=== PATIENT | male | born 1960 | race Caucasian/White ===

== ENCOUNTER → 2016-09-07 | Outpatient (CLI) | payer BC | END | disposition home or self-care (01) | LOC: CPPFTMAIN 11:52 | PROVIDERS: ATTEND Internal Medicine | DX: J45.909 Unspecified asthma, uncomplicated (principal); J98.8 Other specified respiratory disorders | CPT/HCPCS: 94060; 94726; 94729 ==

== ENCOUNTER 2022-08-31 09:00 | Inpatient (IN) | payer BC ==
[2022-08-31] MEDS ORDERED: SODIUM CHLORIDE 0.9% 1,000 ML IV STA (09:17)
--- NOTE | 2022-08-31 09:24 | ED ---
General Adult HPI - General Chief complaint: Neuro Symptoms/Deficit Stated complaint: Slurred speech Time Seen by Provider: 08/31/22 09:11 Source: patient, RN notes reviewed Mode of arrival: ambulatory Limitations: no limitations - History of Present Illness Initial comments: Patient is a pleasant 62-year-old male presenting to the emergency Department with several complaints. Onset of symptoms was just after 8 AM. Patient was arty awake. Patient feels odd sensation left side of the face and arm. No new weakness noted. Patient also had some slurred speech while on a conference call with work. Patient still feels cloudy and that his speech is not quite normal. Patient states there is also time he had some mild chest discomfort described as tightness that has resolved. No back pain. - Related Data Home Medications Medication Instructions Recorded Confirmed Albuterol Sulfate [Albuterol 1 - 2 puff INHALATION RT-Q4H PRN 08/31/22 08/31/22 Sulfate Hfa] Vitamin B Complex 1 cap PO DAILY 08/31/22 08/31/22 Vitamin C(Unknown Dose) 1 tab PO DAILY 08/31/22 08/31/22 Vitamin D(Unknown Dose) 1 tab PO DAILY 08/31/22 08/31/22 Vitamin K-2(Unknown Dose) 1 tab PO DAILY 08/31/22 08/31/22 Allergies Allergy/AdvReac Type Severity Reaction Status Date / Time No Known Allergies Allergy Verified 08/31/22 09:57 Review of Systems ROS Statement: Those systems with pertinent positive or pertinent negative responses have been documented in the HPI. ROS Other: All systems not noted in ROS Statement are negative. Constitutional: Denies: fever Eyes: Denies: eye pain ENT: Denies: ear pain Respiratory: Denies: cough, dyspnea Cardiovascular: Reports: as per HPI Endocrine: Denies: fatigue Gastrointestinal: Denies: abdominal pain Genitourinary: Denies: urgency Musculoskeletal: Denies: back pain Skin: Denies: rash Neurological: Reports: as per HPI, paresthesias. Denies: headache, weakness Past Medical History Past Medical History: Asthma History of Any Multi-Drug Resistant Organisms: None Reported Past Surgical History: Hernia Repair, Orthopedic Surgery Past Psychological History: No Psychological Hx Reported Smoking Status: Never smoker Past Alcohol Use History: None Reported Past Drug Use History: None Reported General Exam Limitations: no limitations General appearance: alert, in no apparent distress Head exam: Present: normocephalic Eye exam: Present: normal appearance, PERRL, EOMI. Absent: nystagmus ENT exam: Present: normal oropharynx Neck exam: Present: normal inspection Respiratory exam: Present: normal lung sounds bilaterally. Absent: chest wall tenderness Cardiovascular Exam: Present: regular rate, normal rhythm Expanded Peripheral pulses: 2+: Radial (R), Radial (L), Posterior Tibialis (R), Posterior Tibialis (L) GI/Abdominal exam: Present: soft. Absent: tenderness Extremities exam: Present: normal inspection. Absent: pedal edema, calf tenderness Neurological exam: Present: alert, oriented X3, CN II-XII intact. Absent: motor sensory deficit Expanded Neurological exam: Present: protecting the airway Patient oriented to: Present: person, place, time Speech: Present: fluid speech. Absent: expressive aphasia Cranial nerves: EOM's Intact: Normal, Facial Sensation: Normal Sensory exam: Upper Extremity Light Touch: Normal, Lower Extremity Light Touch: Normal Motor strength exam: RUE: 5, LUE: 5, RLE: 5, LLE: 5 Eye Response: (4) open spontaneously Motor Response: (6) obeys commands Verbal Response: (5) oriented Psychiatric exam: Present: normal affect, normal mood Skin exam: Present: normal color Course Vital Signs 08/31/22 09:05 Temperature 98 F Pulse Rate 66 Respiratory 18 Rate Blood Pressure 213/103 O2 Sat by Pulse 98 Oximetry - Reevaluation(s) Reevaluation #1: 08/31/22 09:21 Patient has NIH of 0 and therefore is not considered a TPA candidate. Risks are felt to outweigh benefits EKG Findings - EKG Results: EKG: interpreted by ERMD, sinus rhythm, normal axis, normal QRS, normal ST/T EKG shows: bradycardia Medical Decision Making - Medical Decision Making Was pt. sent in by a medical professional or institution (, PA, FIRE [employer], urgent care, hospital, or custodial...) When possible be specific @ -No Did you speak to anyone other than the patient for history (EMS, parent, family, police, friend...)? What history was obtained from this source @ -No Did you review nursing and triage notes (agree or disagree)? Why? @ -I reviewed and agree with nursing and triage notes Were old charts reviewed (outside hosp., previous admission, EMS record, old EKG, old radiological studies, urgent care reports/EKG's, custodial records)? Report findings @ -No old charts were reviewed Differential Diagnosis (chest pain, altered mental status, abdominal pain women, abdominal pain men, vaginal bleeding, weakness, fever, dyspnea, syncope, headache, dizziness, GI bleed, back pain, seizure, CVA, palpatations, mental health)? @ -Differential Weakness: Hypoglycemia, shock, sepsis, hyponatremia, anemia, infection, MT, ETOH, adverse medicine reaction, overdose, stroke, this is not meant to be an all-inclusive list. EKG interpreted by me (3pts min.). @ -As above X-rays interpreted by me (1pt min.). @ -Chest x-ray shows no acute process CT interpreted by me (1pt min.). @ -Report reviewed U/S interpreted by me (1pt. min.). @ -None done What testing was considered but not performed or refused? (CT, X-rays, U/S, labs)? Why? @ -None What meds were considered but not given or refused? Why? @ -None Did you discuss the management of the patient with other professionals (professionals i.e. , PA, [employer], lab, RT, psych nurse, social sciences instructor, heavy equipment technician, teacher, philanthropy officer, case management specialist)? Give summary @ -Case was discussed with Dr. Kevin, who will admit for Dr. Freeman Was smoking cessation discussed for >3mins.? @ -No Was critical care preformed (if so, how long)? @ -No Were there social determinants of health that impacted care today? How? (Homelessness, low income, unemployed, alcoholism, drug addiction, transportation, low edu. Level, literacy, decrease access to med. care, [facility], rehab)? @ -No Was there de-escalation of care discussed even if they declined (Discuss DNR or withdrawal of care, Hospice)? DNR status @ -No What co-morbidities impacted this encounter? (DM, HTN, Smoking, COPD, CAD, Cance r, CVA, ARF, Chemo, Hep., AIDS, mental health diagnosis, sleep apnea, morbid obesity)? @ -None Was patient admitted / discharged? Hospital course, mention meds given and route, prescriptions, significant lab abnormalities, going to OR and other pertinent info. @ -Patient reevaluated and states he is near symptom-free at this time. Speech remains normal. Nursing staff did have some concerns with patient having mild speech difficulties. Patient had earlier he did have difficulty finding words. Undiagnosed new problem with uncertain prognosis? @ -No Drug Therapy requiring intensive monitoring for toxicity (Heparin, Nitro, Insulin, Cardizem)? @ -No Were any procedures done? @ -No Diagnosis/symptom? @ -TIA Acute, or Chronic, or Acute on Chronic? @ -Acute Uncomplicated (without systemic symptoms) or Complicated (systemic symptoms)? @ -default Side effects of treatment? @ -No Exacerbation, Progression, or Severe Exacerbation? @ -No Poses a threat to life or bodily function? How? (Chest pain, USA, MT, pneumonia, PE, COPD, DKA, ARF, appy, cholecystitis, CVA, Diverticulitis, Homicidal, Suicidal, threat to staff... and all critical care pts) @ -No - Lab Data Result diagrams: 08/31/22 09:22 08/31/22 09:22 Lab Results 08/31/22 08/31/22 08/31/22 Range/Units 09:22 09:22 09:22 WBC 6.9 (3.8-10.6) k/uL RBC 4.99 (4.30-5.90) m/uL Hgb 14.8 (13.0-17.5) gm/dL Hct 43.1 (39.0-53.0) % MCV 86.3 (80.0-100.0) fL MCH 29.7 (25.0-35.0) pg MCHC 34.4 (31.0-37.0) g/dL RDW 13.9 (11.5-15.5) % Plt Count 211 (150-450) k/uL MPV 8.4 Neutrophils % 63 % Lymphocytes % 20 % Monocytes % 7 % Eosinophils % 4 % Basophils % 1 % Neutrophils # 4.4 (1.3-7.7) k/uL Lymphocytes # 1.4 (1.0-4.8) k/uL Monocytes # 0.5 (0-1.0) k/uL Eosinophils # 0.3 (0-0.7) k/uL Basophils # 0.1 (0-0.2) k/uL PT 9.5 (9.0-12.0) sec INR 0.9 (<1.2) APTT 22.0 (22.0-30.0) sec Sodium 138 (137-145) mmol/L Potassium 4.5 (3.5-5.1) mmol/L Chloride 107 (98-107) mmol/L Carbon Dioxide 25 (22-30) mmol/L Anion Gap 6 mmol/L BUN 14 (9-20) mg/dL Creatinine 0.93 (0.66-1.25) mg/dL Est GFR (CKD-EPI)AfAm >90 (>60 ml/min/1.73 sqM) Est GFR (CKD-EPI)NonAf 88 (>60 ml/min/1.73 sqM) Glucose 116 H (74-99) mg/dL Calcium 8.9 (8.4-10.2) mg/dL Total Bilirubin 0.8 (0.2-1.3) mg/dL AST 26 (17-59) U/L ALT 35 (4-49) U/L Alkaline Phosphatase 69 (38-126) U/L Creatine Kinase (55-170) U/L Troponin I (0.000-0.034) ng/mL Total Protein 6.6 (6.3-8.2) g/dL Albumin 4.1 (3.5-5.0) g/dL 08/31/22 08/31/22 Range/Units 09:22 09:22 WBC (3.8-10.6) k/uL RBC (4.30-5.90) m/uL Hgb (13.0-17.5) gm/dL Hct (39.0-53.0) % MCV (80.0-100.0) fL MCH (25.0-35.0) pg MCHC (31.0-37.0) g/dL RDW (11.5-15.5) % Plt Count (150-450) k/uL MPV Neutrophils % % Lymphocytes % % Monocytes % % Eosinophils % % Basophils % % Neutrophils # (1.3-7.7) k/uL Lymphocytes # (1.0-4.8) k/uL Monocytes # (0-1.0) k/uL Eosinophils # (0-0.7) k/uL Basophils # (0-0.2) k/uL PT (9.0-12.0) sec INR (<1.2) APTT (22.0-30.0) sec Sodium (137-145) mmol/L Potassium (3.5-5.1) mmol/L Chloride (98-107) mmol/L Carbon Dioxide (22-30) mmol/L Anion Gap mmol/L BUN (9-20) mg/dL Creatinine (0.66-1.25) mg/dL Est GFR (CKD-EPI)AfAm (>60 ml/min/1.73 sqM) Est GFR (CKD-EPI)NonAf (>60 ml/min/1.73 sqM) Glucose (74-99) mg/dL Calcium (8.4-10.2) mg/dL Total Bilirubin (0.2-1.3) mg/dL AST (17-59) U/L ALT (4-49) U/L Alkaline Phosphatase (38-126) U/L Creatine Kinase 52 L (55-170) U/L Troponin I <0.012 (0.000-0.034) ng/mL Total Protein (6.3-8.2) g/dL Albumin (3.5-5.0) g/dL Disposition Clinical Impression: Transient cerebral ischemia Disposition: ADMITTED IP TO THIS HOSP Is patient prescribed a controlled substance at d/c from ED?: No Referrals: Jae García MD [STAFF PHYSICIAN] - 1-2 days Time of Disposition: 10:36
[2022-08-31 09:41] LABS: Basophils # (A) 0.1 k/uL (0-0.2); Basophils % (A) 1 %; Eosinophils # (A) 0.3 k/uL (0-0.7); Eosinophils % (A) 4 %; HCT 43.1 % (39.0-53.0); HGB 14.8 gm/dL (13.0-17.5); Lymphocytes # (A) 1.4 k/uL (1.0-4.8); Lymphocytes % (A) 20 %; MCH 29.7 pg (25.0-35.0); MCHC 34.4 g/dL (31.0-37.0); MCV 86.3 fL (80.0-100.0); Mean Platelet Volume 8.4; Monocytes # (A) 0.5 k/uL (0-1.0); Monocytes % (A) 7 %; Neutrophils # (A) 4.4 k/uL (1.3-7.7); Neutrophils % (A) 63 %; Platelet Count 211 k/uL (150-450); RBC 4.99 m/uL (4.30-5.90); RDW 13.9 % (11.5-15.5); WBC 6.9 k/uL (3.8-10.6)
[2022-08-31 09:56] LABS: INR 0.9 (<1.2); Prothrombin Time 9.5 sec (9.0-12.0)
--- NOTE | 2022-08-31 10:02 | XR ---
EXAMINATION TYPE: XR chest 2V DATE OF EXAM: 08/31/2022 COMPARISON: NONE TECHNIQUE: PA and lateral views submitted. HISTORY: Altered mental status FINDINGS: The lungs are clear and there is no pneumothorax, pleural effusion, or focal pneumonia. Heart size normal and no overt failure. Osseous structures demonstrate hypertrophic and degenerative changes of the spine. Hyperinflation suggests COPD. IMPRESSION: 1. No acute process.
--- NOTE | 2022-08-31 10:04 | CT ---
EXAMINATION TYPE: CT brain wo con for TPA DATE OF EXAM: 08/31/2022 COMPARISON: None INDICATION: Left side face and arm numbness. DLP: 1157.4 mGycm, Automated exposure control for dose reduction was used. CONTRAST: None CT of the brain is performed utilizing 3 mm thick sections through the posterior fossa and 3 mm thick sections through the remaining calvarium. Study is performed within 24 hours of arrival to the hosp ital. No abnormal hyperdensity is present to suggest an acute intracranial hemorrhage. No mass lesion is evident. No acute infarcts are evident. Ventricles and sulci are appropriate for the patient age. There is mucosal thickening to the right maxillary sinus. Small air-fluid level may be present. Corre late for acute right maxillary sinusitis. Mucosal thickening is through ethmoid air cell regions. The ethmoidectomy and uncinectomy. Left septal deviation is present. Air-fluid level is within the front al sinus. Mastoid air cells are clear. IMPRESSIONS: 1. No acute intracranial process. Follow-up MRI can be performed as clinically indicated. 2. Prior sinus surgery. Mucosal thickening is within right maxillary sinus and ethmoid air cells. Air -fluid levels are within the frontal and right maxillary sinus. Correlate for sinusitis.
[2022-08-31 10:07] LABS: ALT 35 U/L (4-49); AST 26 U/L (17-59); African American GFR (CKD) >90 (>60 ml/min/1.73 sqM); Albumin 4.1 g/dL (3.5-5.0); Alkaline Phosphatase 69 U/L (38-126); Anion Gap 6 mmol/L; Blood Urea Nitrogen 14 mg/dL (9-20); Calcium 8.9 mg/dL (8.4-10.2); Carbon Dioxide 25 mmol/L (22-30); Chloride 107 mmol/L (98-107); Glucose 116 mg/dL (74-99); Non-African American GFR(CKD) 88 (>60 ml/min/1.73 sqM); Potassium 4.5 mmol/L (3.5-5.1); Sodium 138 mmol/L (137-145); Total Bilirubin 0.8 mg/dL (0.2-1.3); Total Protein 6.6 g/dL (6.3-8.2)
[2022-08-31] MEDS ORDERED: ASPIRIN 325 MG TAB PO STA (10:36)
[2022-08-31] MEDS ORDERED: ALBUTEROL NEBULIZED 2.5 MG/3 ML INHALATION PRN (11:29)
[2022-08-31] MEDS: SODIUM CHLORIDE 0.9% 1,000 ML IV SCH ×2 (11:32→20:26)
--- NOTE | 2022-08-31 12:11 | P.HPIM ---
History of Present Illness H&P Date: 08/31/22 History of Presenting Illness: Patient is a 62-year-old male with a past medical history of hypertension and asthma. He presented to the emergency department with a chief complaint of left-sided facial tingling and numbness along with tingling to left upper extremity. Patient reports his day began normally and around 8:30 AM while undergoing a work meeting he began noticing a tingling/heaviness/numbness to the left side of his face accompanied by left upper extremity tingling. Patient reports shortly after this was accompanied by a brain fog and difficulties with his speech stating words would not come out and when he did did not make sense. Patient reports difficulties with speech only lasted moments but the tingling and "flat" feeling to the left side of his face remains as well as the tingling in his left upper extremity. Patient states he has a very stressful job and has been under increased stress recently and was also recently diagnosed with a sinus infection on 08/23/22 where he was started on Augmentin but only completed a 5 day course. In addition patient was also started on amlodipine 5 mg daily at this time secondary to hypertension. Patient reports he has not been under the care of a primary care doctor since before [facility]. Patient denies having any headache, changes in vision or hearing, fevers or chills, dizziness/l ightheadedness, dysphagia, sore throat, cough or congestion, chest pain or palpitations, shortness of breath, nausea, vomiting, or experiencing any numbness/swelling/focal weakness in his extremities. Patient does report history of sinus surgery and uses daily nasal flushes but reports recently he is having decreased drainage from his right nares along with increase/build up sinus pressure. Patient underwent full evaluation in the emergency department. Upon arrival patient was found to be in hypertensive urgency with blood pressure of 213/103 and heart rate of 66. Patient denies taking amlodipine as previously prescribed. EKG completed showing sinus bradycardia at 59 bpm with no noted T wave or ST abnormality showing no signs of acute ischemia upon personal review and interpretation. CT brain completed in radiology report reviewed showing evidence of prior sinus surgery with mucosal thickening in right maxillary sinus and eats moist air cells with fluid levels consistent with frontal and right maxillary sinusitis, CT otherwise negative for acute intracranial process. Chest x-ray was negative for acute cardiopulmonary process revealing mild hyperinflation consistent with COPD. Labs completed and reviewed. CBC, coags, and CMP were unremarkable. Troponin normal findings at less than 0.012. Patient along with laboratory and imaging findings were discussed in detail with the ED physician. Patient is being admitted to observation unit with telemetry under our services with consultation to neurology. Review of systems: Pertinent positives and negatives as discussed in HPI, a complete review of systems was performed and all other systems are negative. Physical exam: Vital signs reviewed and stable. General: Nontoxic, no distress and appears stated age. Derm: Skin warm and dry, normal coloration for ethnicity. Head: Atraumatic, normocephalic and symmetric. Eyes: EOMs intact, no lid lag, and anicteric sclera Mouth: no lip lesions, mucus membranes moist Cardiovascular: regular rate and rhythm with normal S1S2, no murmur, positive posterior tibial pulses bilaterally, and cap refill < 2 seconds. Lungs: Respirations even, regular, and unlabored on room air. Lungs CTA bi laterally, no rhonchi, no rales, no wheezing, and no accessory muscle usage. Abdominal: soft, nontender to palpation, no guarding, no appreciable organomegaly Ext: ROM intact. No gross muscle atrophy, no edema, no contractures Neuro: Speech clear, face symmetrical and CN II-XII grossly intact with no noted focal neuro deficits Psych: Alert and oriented to person, place, time, and situation. Appropriate and pleasant affect. Assessment and Plan of Care: Left sided facial numbness and tingling Left upper extremity paresthesias Brief Episode of aphasia Rule out TIA Hypertensive urgency -Upon arrival patient was found to be in hypertensive urgency with blood pressure of 213/103 and heart rate of 66. -Patient denies taking amlodipine as previously prescribed. EKG completed showing sinus bradycardia at 59 bpm with no noted T wave or ST abnormality showing no signs of acute ischemia upon personal review and interpretation. -CT brain completed in radiology report reviewed showing evidence of prior sinus surgery with mucosal thickening in right maxillary sinus and eats moist air cells with fluid levels consistent with frontal and right maxillary sinusitis, CT otherwise negative for acute intracranial process. -Chest x-ray was negative for acute cardiopulmonary process revealing mild hyperinflation consistent with COPD. -Labs completed and reviewed. CBC, coags, and CMP were unremarkable. Troponin normal findings at less than 0.012. -Patient along with laboratory and imaging findings were discussed in detail with the ED physician. Patient is being admitted to observation unit with telem etry under our services with consultation to neurology. -Neuro checks every 4 hours -Telemetry monitoring -Order placed for lipid profile and hemoglobin A1c -Order placed for echocardiogram and carotid Dopplers -Order placed for daily aspirin and 25 mg daily and atorvastatin 40 mg nightly -Order placed for vital signs every 4 hours and patient started on amlodipine 5 mg daily. Right frontal and maxillary sinusitis, with history of sinus surgery and deviated septum -CT brain completed in radiology report reviewed showing evidence of prior sinus surgery with mucosal thickening in right maxillary sinus and eats moist air cells with fluid levels consistent with frontal and right maxillary sinusitis. -Patient recently diagnosed with sinusitis, however did not take/complete antibiotic course as directed. -Augmentin 875/125 mg tablets by mouth every 12 hours 10 days. The patient is admitted with an anticipated less than 2 midnight stay for evaluation of left-sided facial numbness and tingling. CODE STATUS: Full code DVT prophylaxis: Lovenox Discussed with: Patient, ED physician, and RN Anticipated discharge date: Clinical course to determine, likely 24-[address]: Home Patient was seen independently by Nurse Practitioner. This document was prepared using [employer] dictation software. Please allow for errors in brake repair supervisor while rare they do occur. Past Medical History Past Medical History: Asthma History of Any Multi-Drug Resistant Organisms: None Reported Past Surgical History: Hernia Repair, Orthopedic Surgery Past Psychological History: No Psychological Hx Reported Smoking Status: Never smoker Past Alcohol Use History: None Reported Past Drug Use History: None Reported Medications and Allergies Home Medications Medication Instructions Recorded Confirmed Type Albuterol Sulfate [Albuterol 1 - 2 puff INHALATION RT-Q4H PRN 08/31/22 08/31/22 History Sulfate Hfa] Vitamin B Complex 1 cap PO DAILY 08/31/22 08/31/22 History Vitamin C(Unknown Dose) 1 tab PO DAILY 08/31/22 08/31/22 History Vitamin D(Unknown Dose) 1 tab PO DAILY 08/31/22 08/31/22 History Vitamin K-2(Unknown Dose) 1 tab PO DAILY 08/31/22 08/31/22 History Allergies Allergy/AdvReac Type Severity Reaction Status Date / Time No Known Allergies Allergy Verified 08/31/22 09:57 Physical Exam Vitals: Vital Signs Temp Pulse Resp BP Pulse Ox 03/21/23 11:00 52 L 16 161/99 96 08/31/22 10:30 60 18 171/100 96 08/31/22 09:05 98 F 66 18 213/103 98 Intake and Output 08/30/22 08/31/22 08/31/22 22:59 06:59 14:59 Other: Weight 108.862 kg Results CBC & Chem 7: 08/31/22 09:22 08/31/22 09:22 Labs: Abnormal Lab Results - Last 24 Hours (Table) 08/31/22 08/31/22 Range/Units 09:22 09:22 Glucose 116 H (74-99) mg/dL Creatine Kinase 52 L (55-170) U/L
[2022-08-31] MEDS: AMOXIC-POT CLAV 875-125MG 1 EACH TAB PO SCH ×2 (12:16→20:25)
[2022-08-31] MEDS: amLODIPine 5 MG TAB PO SCH (12:18)
--- NOTE | 2022-08-31 12:43 | US ---
EXAMINATION TYPE: US carotid duplex BILAT DATE OF EXAM: 08/31/2022 COMPARISON: NONE CLINICAL HISTORY: Stenosis. Pt states left facial numbness TECHNIQUE: Carotid duplex ultrasound examination. Indirect Doppler criteria was utilized. FINDINGS: EXAM MEASUREMENTS: RIGHT: Peak Systolic Velocity (PSV) cm/sec ----- Right CCA: 52.6 ----- Right ICA: 135.5 ----- Right ECA: 70.2 ICA/CCA ratio: 2.6 RIGHT: End Diastole cm/sec ----- Right CCA: 9.8 ----- Right ICA: 22.5 ----- Right ECA: 7.6 LEFT: Peak Systolic Velocity (PSV) cm/sec ----- Left CCA: 71.4 ----- Left ICA: 117.7 ----- Left ECA: 76.9 ICA/CCA ratio: 1.6 LEFT: End Diastole cm/sec ----- Left CCA: 21.9 ----- Left ICA: 43.4 ----- Left ECA: 7.6 VERTEBRALS (direction of flow): Right Vertebral: Antegrade Left Vertebral: Antegrade Rhythm: Normal BLACK LEATHER BUFFER NOTES: Mildly elevated velocities within right ICA, otherwise no significant stenosis vis ualized. Significant plaquing is not identified. Some intimal thickening is present on the left. IMPRESSION: 1. Moderate elevated velocity within the right internal carotid artery. This would correlate with a m oderate stenosis based on velocities. Significant plaquing or is not identified. Criteria for Assigning % of Stenosis / Diameter reduction (Estimation based on the indirect measurements of the internal carotid artery velocities (ICA PSV). 1. Normal (no stenosis)=ICA PSV < 125 cm/s: ratio < 2.0: ICA EDV<40 cm/s. 2. Less than 50% stenosis=ICA PSV < 125 cm/s: ratio < 2.0: ICA EDV<40 cm/s. 3. 50 to 69% stenosis=ICA PSV of 125 to 230 cm/s: ration 2.0 ? 4.0: ICA EDV 40-100 cm/s. 4. Greater than 70% stenosis to near occlusion= ICA PSV > 230 cm/s: ratio > 4.0: ICA EDV > 100 cm/s. 5. Near occlusion= ICA PSV velocities may be low or undetectable: variable ratio and ICA EDV. 6. Total occlusion=unable to detect flow.
[2022-08-31] MEDS: ENOXAPARIN 40 MG/0.4 ML SYRINGE SQ SCH (15:32)
--- NOTE | 2022-08-31 17:46 | CT ---
EXAMINATION TYPE: CT angio head neck CT DLP: 929 mGycm, Automated exposure control for dose reduction was used. DATE OF EXAM: 08/31/2022 5:33 PM COMPARISON: CT brain 08/31/2022 CLINICAL INDICATION:Male, 62 years old with history of CVA, stenosis, r/o dissection, left side facia l and arm weakness TECHNIQUE: Axially acquired helical CT angiogram of the head and neck was obtained with contrast. Axi al images are supplemented with 3D reconstructions which were [facility] NASCET criteria used. Contrast used:65 mL of Isovue 370 with IV Contrast, Oral contrast used: None. FINDINGS: CTA HEAD: No evidence of acute intracranial hemorrhage, mass effect, or midline shift. The ventricles, sulci, a nd cisterns are unremarkable. The visualized portions of the internal carotid arteries, middle cerebral arteries, anterior cerebral arteries, and posterior cerebral arteries are patent. origins of the posterior cerebral arteries bilaterally. The basilar and vertebral arteries are patent. Paranasal sinus disease most proximal in the maxillary sinuses. CTA NECK: Right Carotid System: The common carotid artery and external carotid artery are patent. The carotid bifurcation demonstrate s no evidence of hemodynamically significant stenosis. The remaining portions of the internal carotid artery demonstrate normal size without significant narrowing. Left Carotid System: The common carotid artery and external carotid artery are patent. The carotid bifurcation demonstrate s no evidence of hemodynamically significant stenosis. The remaining portions of the internal carotid artery demonstrate normal size without significant narrowing. Vertebral arteries are patent without evidence hemodynamically significant stenosis. There is a three-vessel aortic arch. The origins of the great vessels are patent. No evidence of hemo dynamically significant stenosis. Left inferior thyroid nodule measuring 1.9 x 1.5 cm. IMPRESSION: 1. No evidence of dissection of the cervical internal carotid arteries or vertebral arteries or any e vidence of significant stenosis at the carotid bifurcations. 2. No evidence of intracranial high-grade stenosis or intracranial aneurysm.
[2022-08-31] MEDS: ATORVASTATIN 40 MG TAB PO SCH (20:00)
--- NOTE | 2022-09-01 06:10 | P.CNNES ---
History of Present Illness Consult date: 08/31/22 Requesting physician: Donovan Olson Reason for Consult: TIA History of Present Illness: Patient is a 62-year-old right-handed male with history of hypertension, asthma, came to the hospital for strokelike symptoms. Patient states that last night he went to sleep at 11 PM and was fine. He did wake up at 3 AM and went to the bathroom and was feeling fine. He woke up finally at 7:45 AM and noticed numbness of left side of his face and left arm was numb. He works from home. When he started talking at 8:30 AM in the meeting, he noticed some slurred speech, but did not have problems finding words. He felt like he was in the "brain fog". He had delay in thought process. His ears were ringing. He noticed the entire left arm was tingling, but more prominent involving his left hand and forearm region. He felt his left cheek was feeling flat/sleep. He complained of some pain in the neck. Also complaining of pain in the left shoulder, extending to the left precordial region. He denied any dizziness, nausea or vomiting. Denies any recent head or neck injury. He denies any weakness in the legs. Denies any problem with the vision. He continues to have numbness of the left cheek and left arm. Vital signs on arrival blood pressure 213/103, pulse rate 66 temperature 98.0. Most recent blood pressure 203/101. Blood test shows normal CBC, PT/PTT, normal CMP. CK is 52. Troponin negative. Patient has history of hypertension recently diagnosed 2 weeks ago when he went for a sinus congestion and was found to have elevated blood pressure. He does not know about his cholesterol status, denies diabetes. He does have asthma. He has not smoked since and was never a heavy smoker. Denies any alcohol. He does admit to having some stresses at work. CT head revealed no acute intracranial process. Prior sinus surgery. Mucosal thickening within the right maxillary sinus and ethmoid air cells. Air fluid levels are within the frontal and right maxillary sinus. Correlate for sinusitis. Chest x-ray showed no acute process. EKG with sinus bradycardia. Patient states that he used to take aspirin for almost 20 years, but stopped taking it 5 years ago after his persuaded him to stop as it was not helpful. Patient states that he has history of retinal migraines for last 40 years. Lately it has got worse, occurring about once a month. He denies any nausea or vomiting with it. He does feel tired afterwards. Patient admits to weight gain of 15 pounds since April 2022. Review of Systems Constitutional: Denies chills, Denies fever Eyes: denies blurred vision (History of retinal migraines.), denies pain Ears: bilateral: tinnitus, deny: decreased hearing, ear discharge Ears, nose, mouth and throat: Reports headache, Denies sore throat Cardiovascular: Reports chest pain, Denies shortness of breath, Denies syncope Respiratory: Denies cough, Denies excessive sputum Gastrointestinal: Denies abdominal pain, Denies diarrhea, Denies nausea, Denies vomiting Musculoskeletal: Denies myalgias, Denies neck pain Integumentary: Denies pruritus, Denies rash Neurological: Reports as per HPI Psychiatric: Denies anxiety, Denies depression Endocrine: Reports weight change, Denies fatigue Hematologic/Lymphatic: Denies easy bruising Past Medical History Past Medical History: Asthma History of Any Multi-Drug Resistant Organisms: None Reported Past Surgical History: Hernia Repair, Orthopedic Surgery Past Psychological History: No Psychological Hx Reported Smoking Status: Never smoker Past Alcohol Use History: None Reported Past Drug Use History: None Reported Medications and Allergies Home Medications Medication Instructions Recorded Confirmed Type Albuterol Sulfate [Albuterol 1 - 2 puff INHALATION RT-Q4H PRN 08/31/22 08/31/22 History Sulfate Hfa] Vitamin B Complex 1 cap PO DAILY 08/31/22 08/31/22 History Vitamin C(Unknown Dose) 1 tab PO DAILY 08/31/22 08/31/22 History Vitamin D(Unknown Dose) 1 tab PO DAILY 08/31/22 08/31/22 History Vitamin K-2(Unknown Dose) 1 tab PO DAILY 08/31/22 08/31/22 History Allergies Allergy/AdvReac Type Severity Reaction Status Date / Time No Known Allergies Allergy Verified 08/31/22 09:57 Physical Examination - Vital Signs Vital Signs: Vital Signs Temp Pulse Pulse Resp BP BP Pulse Ox 08/31/22 13:00 57 L 16 175/95 97 08/31/22 12:10 98.9 F 65 17 203/101 98 08/31/22 12:00 61 20 153/108 98 08/31/22 11:00 52 L 16 161/99 96 08/31/22 10:30 60 18 171/100 96 08/31/22 09:05 98 F 66 18 213/103 98 Intake and Output 08/31/22 08/31/22 08/31/22 06:59 14:59 22:59 Other: Weight 108.862 kg Patient is a late middle aged male, in no acute distress. Patient is alert awake oriented to time place and person. Speech and language f unctions are normal. Patient can name and repeat very well. No aphasia or dysarthria. Attention, concentration and fund of knowledge is adequate. On cranial nerve examination, pupils are equal, round and reacting to light, visual galvan are full on confrontation, with no neglect on double simultaneous stimulation. Extraocular muscles are intact with no nystagmus. Face is symmetric, tongue protrudes to the midline. Palatal elevation and sensation normal, hearing and shoulder shrug normal, facial sensation normal. 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 Deep tendon reflexes are symmetric 1+ all over and plantars downgoing bilaterally. Sensory to touch is decreased in the left arm as compared to the right arm. Equal in the legs. No neglect on double simultaneous stimulation. Cerebellar function showed no ataxia for [id number] testing. No dysdiadochokinesia. No ataxia for [id number] testing on either side. Tone and bulk of muscles normal. Gait deferred.. On general examination, there is no carotid bruit or murmur, S1-S2 audible. Chest is clear on consultation. Abdomen is soft nontender. No organomegaly, bowel sounds present. Peripheral pulses are present. No edema. Results - Laboratory Findings CBC and BMP: 08/31/22 09:22 08/31/22 09:22 Abnormal Lab Findings: Abnormal Labs 08/31/22 08/31/22 09:22 09:22 Glucose 116 H Creatine Kinase 52 L Assessment and Plan Assessment: * Probable stroke/TIA manifesting with left facial brachial paresthesias and mild left sided weakness. * Hypertension * Asthma * History of retinal migraine, recently increased frequency. Plan: * Patient will undergo MRI of the brain to evaluate for an acute stroke. * Carotid Doppler revealed moderate elevated velocity within the right ICA. This would correlate with a moderate stenosis based on velocities. Significant plaquing is not identified. Antegrade flow in both vertebral arteries. * We will check CTA of head and neck to rule out right ICA stenosis, rule out vertebral or carotid artery dissection. * 2-D echo rule out any embolic source. * Hemoglobin A1c 5.7 * Fasting lipid panel * Patient has received aspirin 325 mg in the ER. Continue aspirin 325 mg daily. * Permissive hypertension for next 24-48 hours. * Telemetry monitoring * Neuro checks every 4 hours. * Neurology will follow. Thank you for the consult.
[2022-09-01] MEDS: AMOXIC-POT CLAV 875-125MG 1 EACH TAB PO SCH ×2 (08:27→20:18)
[2022-09-01] MEDS: ASPIRIN 325 MG TAB PO SCH (08:27)
[2022-09-01] MEDS: amLODIPine 5 MG TAB PO SCH (08:27)
[2022-09-01] MEDS: ENOXAPARIN 40 MG/0.4 ML SYRINGE SQ SCH (08:28)
--- NOTE | 2022-09-01 08:59 | CA ---
Transthoracic Echo Report Name: David Fuller Age: 62 Gender: M : 1960 Exam Date: 08/31/2022 12:04 Exam Location: [place] [facility] Ht (in): 72 Wt (lb): 240 Ordering Physician: Donovan Olson DO Attending/Referring Phys: Supervisor Quilting Dominique Varela RDCS Procedure CPT: Indications: Thrombus Cardiac Hx: Technical Quality: Fair Contrast 1: Total Dose (mL): Contrast 2: Total Dose (mL): MEASUREMENTS (Male / Female) Normal Values 2D ECHO LV Diastolic Diameter PLAX 5.4 cm 4.2 - 5.9 / 3.9 - 5.3 cm LV Systolic Diameter PLAX 3.7 cm IVS Diastolic Thickness 1.2 cm 0.6 - 1.0 / 0.6 - 0.9 cm LVPW Diastolic Thickness 1.3 cm 0.6 - 1.0 / 0.6 - 0.9 cm LV Relative Wall Thickness 0.5 RV Internal Dim ED PLAX 3.7 cm LA Volume 70.9 cm??? 18 - 58 / 22 - 52 cm??? M-MODE Aortic Root Diameter MM 2.6 cm AV Cusp Separation MM 1.7 cm DOPPLER AV Peak Velocity 141.0 cm/s AV Peak Gradient 8.0 mmHg LVOT Peak Velocity 89.7 cm/s LVOT Peak Gradient 3.2 mmHg MV Deceleration Rapides 482.3 cm/s??? MV Pressure Half Time 59.3 ms MV Area PHT 3.7 cm??? Mitral E Point Velocity 98.5 cm/s Mitral A Point Velocity 81.7 cm/s Mitral E to A Ratio 1.2 MV Deceleration Time 204.3 ms Right Atrial Pressure 3.0 mmHg PV Peak Velocity 77.0 cm/s PV Peak Gradient 2.4 mmHg FINDINGS Left Ventricle Mildly increased septal wall thickness. Left ventricular cavity size normal.grade 2 diastolic dysfunction. Left ventricular ejection fraction is estimated at 45-50 %. Right Ventricle Normal right ventricular size. Normal right ventricular global systolic function. Right ventricular systolic pressure within normal limits. Right Atrium Normal right atrial size. Left Atrium Moderately increased left atrial volume. Mitral Valve Mild mitral regurgitation. Aortic Valve Trileaflet aortic valve. No aortic regurgitation. No aortic stenosis. Tricuspid Valve Structurally normal tricuspid valve. No tricuspid regurgitation. Pulmonic Valve Structurally normal pulmonic valve. No pulmonic regurgitation. Pericardium No pericardial effusion. No pleural effusion. Aorta Normal size aortic root and proximal ascending aorta. CONCLUSIONS Mildly impaired LV function was EF between 45-50% Normal RV dimension and systolic function Normal pulmonary artery systolic pressure Overall normal intracardiac valves No evidence of pericardial effusion Previewed by: Dr. Juan Alberto Moore MD (Electronically Signed) Final Date: 01 September 2022 08:59
[2022-09-01] MEDS: SODIUM CHLORIDE 0.9% 1,000 ML IV SCH ×2 (10:53→18:24)
[2022-09-01 12:23] LABS: Chol/HDL Ratio 4.38 Ratio; LDL Cholesterol,Calculated 131.7 mg/dL (0.0-131.0); VLDL Calculation 19.56 mg/dL (5.00-40.00)
--- NOTE | 2022-09-01 13:18 | MR ---
EXAMINATION TYPE: MR brain wo con DATE OF EXAM: 09/01/2022 12:48 PM COMPARISON: 12/16/2015 HISTORY: Left side facial weakness, slurred speech, increased blood pressure FINDINGS: The ventricles, basal cisterns and sulci overlying the cerebral convexities are mildly enlarged. There is evidence of mild periventricular white matter ischemic demyelination. Remote deep white matter insults are also noted. No acute edema is seen on diffusion weighted imaging. There is no evidence for midline shift or mass effect. Acute intracranial hemorrhage or extra-axial collection is not evident. Mild chronic pansinusitis. Mastoid air cells are well-aerated. IMPRESSION: Age-related atrophic and chronic small vessel ischemic change. No acute intracranial process at this time.
[2022-09-01] MEDS ORDERED: amLODIPine 5 MG TAB PO STA (16:53)
--- NOTE | 2022-09-01 16:55 | P.DS ---
Providers Date of admission: 08/31/22 10:36 Expected date of discharge: 09/01/22 Attending physician: Sandra Coronado DO Consults: 08/31/22 10:36 Consult Physician Routine Consulting Provider: Lenore Uribe Consult Reason/Comments: tia Do you want consulting provider notified?: Yes Primary care physician: Stated None Hospital Course: Discharge Diagnosis: TIA Hypertensive urgency Left sided facial numbness and tingling, secondary to TIA and uncontrolled hypertension Left upper extremity paresthesias, secondary to TIA and uncontrolled hypertension Brief Episode of aphasia, secondary to TIA Hypertensive urgency, patient has history of previously diagnosed hypertension and has not taken them previously prescribed medications. Patient was educated on importance of medication compliance and close monitoring of blood pressure as uncontrolled hypertension can lead to serious adverse consequences on his health. Patient verbalized understanding. Patient being discharged home on Norvasc 10 mg daily. Right frontal and maxillary sinusitis, with history of sinus surgery and deviated septum. Patient discharged home on Augmentin 875/125 mg twice daily for an additional 9 days to total a treatment course with antibiotics of 10 days. Hospital Course: Patient is a 62-year-old male with a past medical history of hypertension and asthma. He presented to the emergency department with a chief complaint of left-sided facial tingling and numbness along with tingling to left upper extremity. Patient reports his day began normally and around 8:30 AM while undergoing a work meeting he began noticing a tingling/heaviness/numbness to the left side of his face accompanied by left upper extremity tingling. Patient reports shortly after this was accompanied by a brain fog and difficulties with his speech stating words would not come out and when he did did not make sense. Patient reports difficulties with speech only lasted moments but the tingling and "flat" feeling to the left side of his face remains as well as the tingling in his left upper extremity. Patient states he has a very stressful job and has been under increased stress recently and was also recently diagnosed with a sinus infection on 08/23/22 where he was started on Augmentin but only completed a 5 day course. In addition patient was also started on amlodipine 5 mg daily at this time secondary to hypertension. Patient reports he has not been under the care of a primary care doctor since before [facility]. Patient denies having any headache, changes in vision or hearing, fevers or chills, dizziness/lightheadedness, dysphagia, sore throat, cough or congestion, chest pain or palpitations, shortness of breath, nausea, vomiting, or experiencing any numbness/swelling/focal weakness in his extremities. Patient does report history of sinus surgery and uses daily nasal flushes but reports recently he is having decreased drainage from his right nares along with increase/build up sinus pressure. Patient underwent full evaluation in the emergency department. Upon arrival patient was found to be in hypertensive urgency with blood pressure of 213/103 and heart rate of 66. Patient denies taking amlodipine as previously prescribed. EKG completed showing sinus bradycardia at 59 bpm with no noted T w ave or ST abnormality showing no signs of acute ischemia upon personal review and interpretation. CT brain completed in radiology report reviewed showing evidence of prior sinus surgery with mucosal thickening in right maxillary sinus and eats moist air cells with fluid levels consistent with frontal and right maxillary sinusitis, CT otherwise negative for acute intracranial process. Chest x-ray was negative for acute cardiopulmonary process revealing mild hyperinflation consistent with COPD. Labs completed and reviewed. CBC, coags, and CMP were unremarkable. Troponin normal findings at less than 0.012. Patient along with laboratory and imaging findings were discussed in detail with the ED physician. Patient was admitted to observation unit with telemetry under our services with consultation to neurology. Patient was started on aspirin and atorvastatin. Lipid profile completed showing elevated LDL of 131.7. Carotid Dopplers were completed revealing moderate elevated velocity within the right internal carotid artery possibly correlating with moderate stenosis based on velocities only as no significant plaquing was identified. Neurologist reviewed and placed order for CTA head and neck. Echocardiogram done completed revealing a mildly impaired LV with EF of 45-50%. CTA head and neck was then completed and radiology report reviewed reporting negative for acute process showing no evidence of dissection within the cervical internal carotid arteries or vertebral arteries and showing no evidence of significant stenosis at the carotid bifurcations. MRI showing age related atrophic and chronic small vessel ischemic changes, negative for acute intercranial process. Neurologist diagnosing patient with TIA and clearing patient from neurological standpoint recommending patient be discharged home on daily aspirin 325 mg along with atorvastatin 40 mg daily. In addition to daily aspirin and atorvastatin patient also being discharged home on amlodipine 10 mg daily. Patient instructed he will need to monitor blood pressures at home twice daily and document these findings and a daily log to bring with him to his next doctor's appointment. Patient also encouraged to establish care with not only PCP but household appliances service technician for nursing home monitoring/management of hypertension. Physical exam: Vital signs reviewed and stable. General: Nontoxic, no distress and appears stated age. Derm: Skin warm and dry, normal coloration for ethnicity. Head: Atraumatic, normocephalic and symmetric. Eyes: EOMs intact, no lid lag, and anicteric sclera Mouth: no lip lesions, mucus membranes moist Cardiovascular: regular rate and rhythm with normal S1S2, no murmur, positive posterior tibial pulses bilaterally, and cap refill < 2 seconds. Lungs: Respirations even, regular, and unlabored on room air. Lungs CTA bilaterally, no rhonchi, no rales, no wheezing, and no accessory muscle usage. Abdominal: soft, nontender to palpation, no guarding, no appreciable organomegaly Ext: ROM intact. No gross muscle atrophy, no edema, no contractures Neuro: Speech clear, face symmetrical and CN II-XII grossly intact with no noted focal neuro deficits Psych: Alert and oriented to person, place, time, and situation. Appropriate and pleasant affect. A total of 33 minutes of time were spent preparing this complex discharge summary. Pt was discharged on 09/01/22 at 4:36 PM. Patient was seen independently by Nurse Practitioner. This document was prepared using [employer] dictation software. Please allow for errors in global head advertiser solutions while rare they do occur. Rocky Weathers NP rendered care for this patient independently, reviewed the findings and plan as documented in the note above. I did not physically speak with or examine the patient on this date. Patient Condition at Discharge: Stable Plan - Discharge Summary Discharge Rx Participant: Yes New Discharge Prescriptions: New amLODIPine 10 mg PO DAILY 30 Days #30 tab Aspirin 325 mg PO DAILY 30 Days #30 tab Amoxic-Pot Clav 875-125Mg [Augmentin 875-125] 1 each PO Q12HR 9 Days #18 tab Atorvastatin [Lipitor] 40 mg PO HS 30 Days #30 tab Continue Vitamin B Complex 1 cap PO DAILY Albuterol Sulfate [Albuterol Sulfate Hfa] 1 - 2 puff INHALATION RT-Q4H PRN PRN Reason: Shortness Of Breath Vitamin K-2(Unknown Dose) 1 tab PO DAILY Vitamin C(Unknown Dose) 1 tab PO DAILY Vitamin D(Unknown Dose) 1 tab PO DAILY Discharge Medication List Albuterol Sulfate [Albuterol Sulfate Hfa] 1 - 2 puff INHALATION RT-Q4H PRN 08/31/22 [History] Vitamin B Complex 1 cap PO DAILY 08/31/22 [History] Vitamin C(Unknown Dose) 1 tab PO DAILY 08/31/22 [History] Vitamin D(Unknown Dose) 1 tab PO DAILY 08/31/22 [History] Vitamin K-2(Unknown Dose) 1 tab PO DAILY 08/31/22 [History] Amoxic-Pot Clav 875-125Mg [Augmentin 875-125] 1 each PO Q12HR 9 Days #18 tab 09/01/22 [Rx] Aspirin 325 mg PO DAILY 30 Days #30 tab 09/01/22 [Rx] Atorvastatin [Lipitor] 40 mg PO HS 30 Days #30 tab 09/01/22 [Rx] amLODIPine 10 mg PO DAILY 30 Days #30 tab 09/01/22 [Rx] Follow up Appointment(s)/Referral(s): Juan Alberto Moore MD [STAFF PHYSICIAN] - 1 Week (It is also very important, that you follow up and establish care with household appliances service technician due to right atrial enlargement noted on echocardiogram as it is recommended that you have holter monitor placed to rule out underlying arrhythmia. Office will call patient with appointment ) Michel Bowie MD [REFERRING] - 1 Week (Primary care provider we discussed) Patient Instructions/Handouts: Transient Ischemic Attack (DC), Hypertensive Crisis (DC), Mediterranean Diet (DC), Holter Monitor (GEN) Activity/Diet/Wound Care/Special Instructions: Activity: As tolerated. Take breaks as needed. Diet: Heart healthy and carb consistent diet. Avoid salts, or foods with hidden salts such as canned or boxed foods and frozen dinners. Extra salt makes your heart work harder and traps the fluid in your body for longer. Special Instructions: Take all of your medications as directed and remember to keep all of your doctor's appointments and follow-up as needed. Strongly recommended completing entire antibiotic course as prescribed for treatment of your acute sinusitis. Also you are being discharged home on aspirin and Lipitor secondary to diagnosis of TIA. Return to ER immediately or call 911 if symptoms of numbness/tingling or slurred speech returns or if you develop any other symptoms such as chest pain or focal weakness in your extremities. Also recommend obtaining a blood pressure cuff and monitoring your blood pressure twice daily at home and documenting these findings in a daily log/jose d rnal to bring with you to her next doctor's appointment. It is also very important, that you follow up with household appliances service technician, your event monitor report is being sent to Dr. Moore. Thank you for allowing us to participate in your care, it was truly a pleasure having you for our patient!!! Discharge Disposition: HOME SELF-CARE
[2022-09-01] MEDS: ATORVASTATIN 40 MG TAB PO SCH (20:17)
--- NOTE | 2022-09-01 21:09 | P.PN ---
Subjective Progress Note Date: 09/01/22 Patient was seen for a follow-up. Patient states his symptoms have mostly resolved, but still has some minimal paresthesias left facial region. No new concerns. Objective - Vital Signs Vital signs: Vital Signs Temp 98.0 F 09/01/22 15:00 Pulse 61 09/01/22 15:00 Resp 16 09/01/22 15:00 BP 179/89 09/01/22 15:00 Pulse Ox 95 09/01/22 15:00 FiO2 Intake & Output 08/31/22 09/01/22 09/01/22 18:59 06:59 18:59 Intake Total 480 Balance 480 Weight 108.862 kg Intake: Oral 480 Other: Voiding Method Toilet # Voids 1 2 1 - Exam Patient's mental status, speech and language functions are normal. Cranial nerves are normal. On muscle strength testing there is no pronator drift and the strength is normal in arms and legs. Sensations are equal. - Labs CBC & Chem 7: 08/31/22 09:22 08/31/22 09:22 Labs: Abnormal Lab Results - Last 24 Hours (Table) 08/31/22 Range/Units 09:22 LDL Cholesterol, Calc 131.7 H (0.0-131.0) mg/dL Assessment and Plan Assessment: * Probable TIA manifesting with left facial brachial paresthesias and mild left sided weakness. Symptoms have mostly resolved. * Hypertension * Asthma * History of retinal migraine, recently increased frequency. Plan: * MRI of the brain revealed age-related atrophic and chronic small vessel ischemic change. No acute intracranial process. I personally reviewed MRI, and agree with the findings. No acute ischemic stroke seen. * Carotid Doppler revealed moderate elevated velocity within the right ICA. This would correlate with a moderate stenosis based on velocities. Significant plaquing is not identified. Antegrade flow in both vertebral arteries. * CTA of head and neck revealed no evidence of dissection of the cervical internal carotid arteries or vertebral arteries or any evidence of significant stenosis at the carotid bifurcations. No evidence of intracranial high-grade stenosis or intracranial aneurysm. * 2-D echo revealed mildly impaired left ventricular function with EF between 45-50%. Normal right ventricular dimension and systolic function. Left atrium is moderately increased in volume. * Hemoglobin A1c 5.7 * Fasting lipid panel cholesterol 196, LDL 131, HDL 44 and triglycerides 97. Continue Lipitor 40 mg daily. * Patient has received aspirin 325 mg in the ER. Continue aspirin 325 mg daily. * Optimize control of blood pressure. Patient has been started on amlodipine today. Blood pressure at present is 179/89. * Patient not stable to be discharged tonight due to uncontrolled blood pressure. Recommend control of blood pressure to less than 150/100 prior to discharge. Then slowly may bring to normotensive level to target <130/80 * Also recommend 30 day event monitor prior to discharge to rule out paroxysmal atrial fibrillation. * Suggest follow-up with [facility] for abnormal 2-D echo, may be considered inpatient versus outpatient for abnormal 2-D echo. * Discussed with primary team.
[2022-09-02] MEDS: amLODIPine 5 MG TAB PO SCH (09:43)
[2022-09-02] MEDS: ASPIRIN 325 MG TAB PO SCH (09:43)
[2022-09-02] MEDS: AMOXIC-POT CLAV 875-125MG 1 EACH TAB PO SCH ×2 (09:43→20:28)
[2022-09-02] MEDS: ENOXAPARIN 40 MG/0.4 ML SYRINGE SQ SCH (09:43)
[2022-09-02] MEDS ORDERED: amLODIPine 5 MG TAB PO STA (10:00)
--- NOTE | 2022-09-02 15:27 | P.DS ---
Providers Date of admission: 08/31/22 10:36 Expected date of discharge: 09/02/22 Attending physician: Sandra Coronado, Consults: 08/31/22 10:36 Consult Physician Routine Consulting Provider: Lenore Uribe Consult Reason/Comments: tia Do you want consulting provider notified?: Yes Primary care physician: Stated None Hospital Course: Discharge Diagnosis: TIA New-onset atrial fibrillation, patient started on Eliquis 5 mg by mouth twice a day. Called and discussed with patient transporter, Dr. Ma. Patient to follow-up in office next week. Right atrial enlargement, Pt sent home on event monitor and to follow up with cardiology. Left sided facial numbness and tingling, secondary to TIA and uncontrolled hypertension Left upper extremity paresthesias, secondary to TIA and uncontrolled hypertension Brief Episode of aphasia, secondary to TIA Hypertensive urgency, patient has history of previously diagnosed hypertension and has not taken them previously prescribed medications. Patient was educated on importance of medication compliance and close monitoring of blood pressure as uncontrolled hypertension can lead to serious adverse consequences on his health. Patient verbalized understanding. Patient being discharged home on Norvasc 10 mg daily. Right frontal and maxillary sinusitis, with history of sinus surgery and deviated septum. Patient discharged home on Augmentin 875/125 mg twice daily for an additional 9 days to total a treatment course with antibiotics of 10 days. Hospital Course: Patient is a 62-year-old male with a past medical history of hypertension and asthma. He presented to the emergency department with a chief complaint of left-sided facial tingling and numbness along with tingling to left upper extremity. Patient reports his day began normally and around 8:30 AM while undergoing a work meeting he began noticing a tingling/heaviness/numbness to the left side of his face accompanied by left upper extremity tingling. Patient reports shortly after this was accompanied by a brain fog and difficulties with his speech stating words would not come out and when he did did not make sense. Patient reports difficulties with speech only lasted moments but the tingling and "flat" feeling to the left side of his face remains as well as the tingling in his left upper extremity. Patient states he has a very stressful job and has been under increased stress recently and was also recently diagnosed with a sinus infection on 08/23/22 where he was started on Augmentin but only completed a 5 day course. In addition patient was also started on amlodipine 5 mg daily at this time secondary to hypertension. Patient reports he has not been under the care of a primary care doctor since before Covtn. Patient denies having any headache, changes in vision or hearing, fevers or chills, dizziness/lightheadedness, dysphagia, sore throat, cough or congestion, chest pain or palpitations, shortness of breath, nausea, vomiting, or experiencing any numbness/swelling/focal weakness in his extremities. Patient does report history of sinus surgery and uses daily nasal flushes but reports recently he is having decreased drainage from his right nares along with increase/build up sinus pressure. Patient underwent full evaluation in the emergency department. Upon arrival patient was found to be in hypertensive urgency with blood pressure of 213/103 and heart rate of 66. Patient denies taking amlodipine as previously prescribed. EKG completed showing sinus bradycardia at 59 bpm with no noted T wave or ST abnormality showing no signs of acute ischemia upon personal review and interpretation. CT brain completed in radiology report reviewed showing evidence of prior sinus surgery with mucosal thickening in right maxillary sinus and eats moist air cells with fluid levels consistent with frontal and right maxillary sinusitis, CT otherwise negative for acute intracranial process. Chest x-ray was negative for acute cardiopulmonary process revealing mild hyperinflation consistent with COPD. Labs completed and reviewed. CBC, coags, and CMP were unremarkable. Troponin normal findings at less than 0.012. Patient along with laboratory and imaging findings were discussed in detail with the ED physician. Patient was admitted to observation unit with telemetry under our services with consultation to neurology. Patient was started on aspirin and atorvastatin. Lipid profile completed showing elevated LDL of 131.7. Carotid Dopplers were completed revealing moderate elevated velocity within the right internal carotid artery possibly correlating with moderate stenosis based on velocities only as no significant plaquing was identified. Neurologist reviewed and placed order for CTA head and neck. Echocardiogram done completed revealing a mildly impaired LV with EF of 45-50%. CTA head and neck was then completed and radiology report reviewed reporting negative for acute process showing no evidence of dissection within the cervical internal carotid arteries or vertebral arteries and showing no evidence of significant stenosis at the carotid bifurcations. MRI showing age related atrophic and chronic small vessel ischemic changes, negative for acute intercranial process. Neurologist diagnosing patient with TIA and clearing patient from neurological standpoint recommending patient be discharged home on daily aspirin 325 mg along with atorvastatin 40 mg daily. In addition to daily aspirin and atorvastatin patient also being discharged home on amlodipine 10 mg daily. Patient instructed he will need to monitor blood pressures at home twice daily and document these findings and a daily log to bring with him to his next doctor's appointment. Patient also encouraged to establish care with not only PCP but patient transporter for care home monitoring/management of hypertension. Telemetry monitoring revealing patient in New-onset atrial fibrillation with a controlled ventricular rate, patient started on Eliquis 5 mg by mouth twice a day. Called and discussed with patient transporter, Dr. Ma. Patient to follow-up in office next week. Physical exam: Vital signs reviewed and stable. General: Nontoxic, no distress and appears stated age. Derm: Skin warm and dry, normal coloration for ethnicity. Head: Atraumatic, normocephalic and symmetric. Eyes: EOMs intact, no lid lag, and anicteric sclera Mouth: no lip lesions, mucus membranes moist Cardiovascular: regular rate and rhythm with normal S1S2, no murmur, positive posterior tibial pulses bilaterally, and cap refill < 2 seconds. Lungs: Respirations even, regular, and unlabored on room air. Lungs CTA bilaterally, no rhonchi, no rales, no wheezing, and no accessory muscle usage. Abdominal: soft, nontender to palpation, no guarding, no appreciable organomegaly Ext: ROM intact. No gross muscle atrophy, no edema, no contractures Neuro: Speech clear, face symmetrical and CN II-XII grossly intact with no noted focal neuro deficits Psych: Alert and oriented to person, place, time, and situation. Appropriate and pleasant affect. A total of 31 minutes of time were spent preparing this complex discharge summary. Pt was discharged on Patient was seen independently by Nurse Practitioner. This document was prepared using [employer] dictation software. Please allow for errors in communications intern while rare they do occur. Patient Condition at Discharge: Stable Plan - Discharge Summary Discharge Rx Participant: Yes New Discharge Prescriptions: New amLODIPine 10 mg PO DAILY 30 Days #30 tab Aspirin 325 mg PO DAILY 30 Days #30 tab Amoxic-Pot Clav 875-125Mg [Augmentin 875-125] 1 each PO Q12HR 9 Days #18 tab Atorvastatin [Lipitor] 40 mg PO HS 30 Days #30 tab Continue Vitamin B Complex 1 cap PO DAILY Albuterol Sulfate [Albuterol Sulfate Hfa] 1 - 2 puff INHALATION RT-Q4H PRN PRN Reason: Shortness Of Breath Vitamin K-2(Unknown Dose) 1 tab PO DAILY Vitamin C(Unknown Dose) 1 tab PO DAILY Vitamin D(Unknown Dose) 1 tab PO DAILY Discharge Medication List Albuterol Sulfate [Albuterol Sulfate Hfa] 1 - 2 puff INHALATION RT-Q4H PRN 08/31/22 [History] Vitamin B Complex 1 cap PO DAILY 08/31/22 [History] Vitamin C(Unknown Dose) 1 tab PO DAILY 08/31/22 [History] Vitamin D(Unknown Dose) 1 tab PO DAILY 08/31/22 [History] Vitamin K-2(Unknown Dose) 1 tab PO DAILY 08/31/22 [History] Amoxic-Pot Clav 875-125Mg [Augmentin 875-125] 1 each PO Q12HR 9 Days #18 tab 09/01/22 [Rx] Aspirin 325 mg PO DAILY 30 Days #30 tab 09/01/22 [Rx] Atorvastatin [Lipitor] 40 mg PO HS 30 Days #30 tab 09/01/22 [Rx] amLODIPine 10 mg PO DAILY 30 Days #30 tab 09/01/22 [Rx] Follow up Appointment(s)/Referral(s): Juan Alberto Moore MD [STAFF PHYSICIAN] - 1 Week (It is also very important, that you follow up and establish care with patient transporter due to right atrial enlargement noted on echocardiogram as it is recommended that you have holter monitor placed to rule out underlying arrhythmia. Office will call patient with appointment ) Michel Bowie MD [REFERRING] - 1 Week (Primary care provider we discussed) Patient Instructions/Handouts: Transient Ischemic Attack (DC), Hypertensive Crisis (DC), Mediterranean Diet (DC), Holter Monitor (GEN) Activity/Diet/Wound Care/Special Instructions: Activity: As tolerated. Take breaks as needed. Diet: Heart healthy and carb consistent diet. Avoid salts, or foods with hidden salts such as canned or boxed foods and frozen dinners. Extra salt makes your heart work harder and traps the fluid in your body for longer. Special Instructions: Take all of your medications as directed and remember to keep all of your doctor's appointments and follow-up as needed. Strongly recommended completing entire antibiotic course as prescribed for treatment of your acute sinusitis. Also you are being discharged home on aspirin and Lipitor secondary to diagnosis of TIA. Return to ER immediately or call 911 if symptoms of numbness/tingling or slurred speech returns or if you develop any other symptoms such as chest pain or focal weakness in your extremities. Also recommend obtaining a blood pressure cuff and monitoring your blood pressure twice daily at home and documenting these findings in a daily log/journal to bring with you to her next doctor's appointment. It is also very important, that you follow up with patient transporter, your event monitor report is being sent to Dr. Moore. Thank you for allowing us to participate in your care, it was truly a pleasure having you for our patient!!! Discharge Disposition: HOME SELF-CARE
[2022-09-02] MEDS: METOPROLOL TARTRATE 50 MG TAB PO SCH ×2 (16:16→20:12)
[2022-09-02] MEDS: ATORVASTATIN 40 MG TAB PO SCH (20:28)
[2022-09-02] MEDS: APIXABAN 5 MG TAB PO SCH (20:28)
--- NOTE | 2022-09-03 07:06 | P.CRDCN ---
History of Present Illness Consult date: 09/03/22 Chief complaint: Left arm and left face numbness History of present illness: The patient is a pleasant 62-year-old gentleman with a past medical history significant for hypertension and dyslipidemia and overweight presented to the hospital complaining of left face and left arm numbness. He was in his usual state of health until these symptoms started. No associated symptoms of any chest pain or chest discomfort and no shortness of breath and no presyncope or syncope. He did have some difficulty finding the zepeda as well. The symptoms la sted for less than 24 hours. Subsequently the patient was admitted to the hospital for further evaluation. He was diagnosed with TIA. He was seen by the neurology service and he underwent an MRI of the brain which came in to be unremarkable beside mild atrophic changes and also he underwent CTA showed no high-grade stenosis of the carotid. An echo was performed and showed widely impaired LV function was EF around 45% with no significant valvular abnormalities. Troponin was unremarkable. Subsequently patient was found to be in A. fib which is new diagnosis to him. Then he was converted to normal sinus mechanism. Currently he is on mona bari with metoprolol and also he is on oral anticoagulation with the pressure still slightly elevated and seems to be consistent with stage II hypertension. The examination is remarkable for regular rhythm with a clear breathing sounds bilaterally and no carotid bruit or lower extremity edema noted Assessment Paroxysmal atrial fibrillation. The patient is in sinus rhythm Left arm numbness and left face numbness and aphasia consistent with a TIA Hypertension Dyslipidemia Overweight Plan Continue the current medical regimen including the current dose of oral anticoagulation Increase the dose of beta bari The echo revealed mild cardiomyopathy Consider stress test as an outpatient The patient can be discharged Past Medical History Past Medical History: Asthma History of Any Multi-Drug Resistant Organisms: None Reported Past Surgical History: Hernia Repair, Orthopedic Surgery Past Psychological History: No Psychological Hx Reported Smoking Status: Never smoker Past Alcohol Use History: None Reported Past Drug Use History: None Reported Medications and Allergies Home Medications Medication Instructions Recorded Confirmed Type Albuterol Sulfate [Albuterol 1 - 2 puff INHALATION RT-Q4H PRN 08/31/22 08/31/22 History Sulfate Hfa] Vitamin B Complex 1 cap PO DAILY 08/31/22 08/31/22 History Vitamin C(Unknown Dose) 1 tab PO DAILY 08/31/22 08/31/22 History Vitamin D(Unknown Dose) 1 tab PO DAILY 08/31/22 08/31/22 History Vitamin K-2(Unknown Dose) 1 tab PO DAILY 08/31/22 08/31/22 History Amoxic-Pot Clav 875-125Mg 1 each PO Q12HR 9 Days #18 tab 09/01/22 Rx [Augmentin 875-125] Aspirin 325 mg PO DAILY 30 Days #30 tab 09/01/22 Rx Atorvastatin [Lipitor] 40 mg PO HS 30 Days #30 tab 09/01/22 Rx amLODIPine 10 mg PO DAILY 30 Days #30 tab 09/01/22 Rx Allergies Allergy/AdvReac Type Severity Reaction Status Date / Time No Known Allergies Allergy Verified 08/31/22 09:57 Physical Exam Vitals: Vital Signs Temp Pulse Resp BP BP Pulse Ox 09/03/22 02:20 97.6 F 60 17 142/83 98 09/02/22 19:00 98.1 F 83 17 140/84 97 09/02/22 16:20 98 F 74 16 156/97 95 09/02/22 16:16 93 164/91 09/02/22 09:50 16 Intake and Output 09/02/22 09/03/22 09/03/22 22:59 06:59 14:59 Intake Total 118 Balance 118 Intake: Oral 118 Other: Voiding Method Toilet # Voids 1 Results 08/31/22 09:22 08/31/22 09:22 Current Medications Generic Name Dose Route Start Last Admin Trade Name Freq PRN Reason Stop Dose Admin Albuterol Sulfate 2.5 mg 08/31/22 11:29 Albuterol Nebulized 2.5 Mg/3 Ml INHALATION RT-Q4H PRN Shortness Of Breath Amlodipine Besylate 5 mg 08/31/22 12:15 09/02/22 09:43 Amlodipine 5 Mg Tab PO 5 mg DAILY ANITA Administration Amoxicillin/Clavulanate Potassium 1 each 08/31/22 12:00 09/02/22 20:28 Amoxic-Pot Clav 875-125mg 1 Each Tab PO 1 each Q12HR ANITA Administration Protocol Apixaban 5 mg 09/02/22 21:00 09/02/22 20:28 Apixaban 5 Mg Tab PO 5 mg BID ANITA Administration Protocol Aspirin 81 mg 09/03/22 09:00 Aspirin 81 Mg PO DAILY ANITA Atorvastatin Calcium 40 mg 08/31/22 21:00 09/02/22 20:28 Atorvastatin 40 Mg Tab PO 40 mg HS ANITA Administration Metoprolol Tartrate 75 mg 09/03/22 09:00 Metoprolol Tartrate 50 Mg Tab PO BID ANITA Intake and Output 09/02/22 09/03/22 09/03/22 22:59 06:59 14:59 Intake Total 118 Balance 118 Intake: Oral 118 Other: Voiding Method Toilet # Voids 1 08/31/22 09:22 08/31/22 09:22
[2022-09-03] MEDS: APIXABAN 5 MG TAB PO SCH (07:49)
[2022-09-03] MEDS: AMOXIC-POT CLAV 875-125MG 1 EACH TAB PO SCH (07:49)
[2022-09-03] MEDS: amLODIPine 5 MG TAB PO SCH (07:50)
[2022-09-03] MEDS ORDERED: ASPIRIN 81 MG PO SCH (09:00)
[2022-09-03] MEDS ORDERED: METOPROLOL TARTRATE 25 MG TAB PO SCH (09:00)
[2022-09-03 09:55] VITALS: BP 153/88; PULSE 67; RESP 16; TEMP 97.4
--- NOTE | 2022-09-03 14:43 | P.DS ---
Providers Date of admission: 08/31/22 10:36 Expected date of discharge: 09/03/22 Attending physician: Sandra Coronado, Consults: 08/31/22 10:36 Consult Physician Routine Consulting Provider: Lenore Uribe Consult Reason/Comments: tia Do you want consulting provider notified?: Yes 09/02/22 15:48 Consult Physician Routine Consulting Provider: Juan Alberto Moore Consult Reason/Comments: new onset atrial fib, TIA, hypertensive urgency Do you want consulting provider notified?: Yes, Notify in am Primary care physician: Stated None Hospital Course: Discharge Diagnosis: TIA New-onset paroxysmal atrial fibrillation, patient to continue Eliquis 5 mg by mouth twice a day and metoprolol 75 mg twice daily. Right atrial enlargement, Pt sent home on event monitor and to follow up with cardiology. Patient was also diagnosed with paroxysmal atrial fibrillation during this stay. Left sided facial numbness and tingling, secondary to TIA and uncontrolled hypertension Left upper extremity paresthesias, secondary to TIA and uncontrolled hypertension Brief Episode of aphasia, secondary to TIA Hypertensive urgency, patient has history of previously diagnosed hypertension and has not taken them previously prescribed medications. Patient was educated on importance of medication compliance and close monitoring of blood pressure as uncontrolled hypertension can lead to serious adverse consequences on his health. Patient verbalized understanding. Patient being discharged home on Norvasc 10 mg daily and metoprolol 75 mg twice daily. Right frontal and maxillary sinusitis, with history of sinus surgery and deviated septum. Patient discharged home on Augmentin 875/125 mg twice daily for an additional 9 days to total a treatment course with antibiotics of 10 days. Hospital Course: Patient is a 62-year-old male with a past medical history of hypertension and asthma. He presented to the emergency department with a chief complaint of left-sided facial tingling and numbness along with tingling to left upper extremity. Patient reports his day began normally and around 8:30 AM while undergoing a work meeting he began noticing a tingling/heaviness/numbness to the left side of his face accompanied by left upper extremity tingling. Patient reports shortly after this was accompanied by a brain fog and difficulties with his speech stating words would not come out and when he did did not make sense. Patient reports difficulties with speech only lasted moments but the tingling and "flat" feeling to the left side of his face remains as well as the tingling in his left upper extremity. Patient states he has a very stressful job and has been under increased stress recently and was also recently diagnosed with a sinus infection on 08/23/22 where he was started on Augmentin but only completed a 5 day course. In addition patient was also started on amlodipine 5 mg daily at this time secondary to hypertension. Patient reports he has not been under the care of a primary care doctor since before [facility]. Patient denies having any headache, changes in vision or hearing, fevers or chills, dizziness/lightheadedness, dysphagia, sore throat, cough or congestion, chest pain or palpitations, shortness of breath, nausea, vomiting, or experiencing any numbness/swelling/focal weakness in his extremities. Patient does report history of sinus surgery and uses daily nasal flushes but reports recently he is having decreased drainage from his right nares along with increase/build up sinus pressure. Patient underwent full evaluation in the emergency department. Upon arrival patient was found to be in hypertensive urgency with blood pressure of 213/103 and heart rate of 66. Patient denies taking amlodipine as previously prescribed. EKG completed showing sinus bradycardia at 59 bpm with no noted T wave or ST abnormality showing no signs of acute ischemia upon personal review and interpretation. CT brain completed in radiology report reviewed showing evidence of prior sinus surgery with mucosal thickening in right maxillary sinus and eats moist air cells with fluid levels consistent with frontal and right maxillary sinusitis, CT otherwise negative for acute intracranial process. Chest x-ray was negative for acute cardiopulmonary process revealing mild hyperinflation consistent with COPD. Labs completed and reviewed. CBC, coags, and CMP were unremarkable. Troponin normal findings at less than 0.012. Patient along with laboratory and imaging findings were discussed in detail with the ED physician. Patient was admitted to observation unit with telemetry under our services with consultation to neurology. Patient was started on aspirin and atorvastatin. Lipid profile completed showing elevated LDL of 131.7. Carotid Dopplers were completed revealing moderate elevated velocity within the right internal carotid artery possibly correlating with moderate stenosis based on velocities only as no significant plaquing was identified. Neurologist reviewed and placed order for CTA head and neck. Echocardiogram done completed revealing a mildly impaired LV with EF of 45-50%. CTA head and neck was then completed and radiology report reviewed reporting negative for acute process showing no evidence of dissection within the cervical internal carotid arteries or vertebral arteries and showing no evidence of significant stenosis at the carotid bifurcations. MRI showing age related atrophic and chronic small vessel ischemic changes, negative for acute intercranial process. Neurologist diagnosing patient with TIA and clearing patient from neurological standpoint recommending patient be discharged home on daily aspirin 325 mg along with atorvastatin 40 mg daily. In addition to daily aspirin and atorvastatin patient also being discharged home on amlodipine 10 mg daily. Patient instructed he will need to monitor blood pressures at home twice daily and document these findings and a daily log to bring with him to his next doctor's appointment. Patient also encouraged to establish care with not only PCP but lithograph press operator for intermediate accountant monitoring/management of hypertension. Telemetry monitoring revealing patient in New-onset atrial fibrillation with a controlled ventricular rate, patient started on Eliquis 5 mg by mouth twice a day. He was evaluated by cardiology and metoprolol was increased to 75 mg twice daily. Cardiology recommending outpatient follow-up in their office in one week. Patient medically stable for discharge at this time. Physical exam: Vital signs reviewed and stable. General: Nontoxic, no distress and appears stated age. Derm: Skin warm and dry, normal coloration for ethnicity. Head: Atraumatic, normocephalic and symmetric. Eyes: EOMs intact, no lid lag, and anicteric sclera Mouth: no lip lesions, mucus membranes moist Cardiovascular: regular rate and rhythm with normal S1S2, no murmur, positive posterior tibial pulses bilaterally, and cap refill < 2 seconds. Lungs: Respirations even, regular, and unlabored on room air. Lungs CTA bilaterally, no rhonchi, no rales, no wheezing, and no accessory muscle usage. Abdominal: soft, nontender to palpation, no guarding, no appreciable organomegaly Ext: ROM intact. No gross muscle atrophy, no edema, no contractures Neuro: Speech clear, face symmetrical and CN II-XII grossly intact with no noted focal neuro deficits Psych: Alert and oriented to person, place, time, and situation. Appropriate and pleasant affect. A total of 33 minutes of time were spent preparing this complex discharge summary. Pt was discharged on 09/03/22 at 9:30 every morning. Patient was seen independently by Nurse Practitioner. This document was prepared using [employer] dictation software. Please allow for errors in last remodeler repairer while rare they do occur. Patient Condition at Discharge: Stable Plan - Discharge Summary Discharge Rx Participant: Yes New Discharge Prescriptions: New amLODIPine 10 mg PO DAILY 30 Days #30 tab Amoxic-Pot Clav 875-125Mg [Augmentin 875-125] 1 each PO Q12HR 9 Days #18 tab Atorvastatin [Lipitor] 40 mg PO HS 30 Days #30 tab Apixaban [Eliquis] 5 mg PO BID 30 Days #60 tab Aspirin 81 mg PO DAILY 30 Days #30 tab Metoprolol Tartrate [Lopressor] 75 mg PO BID 30 Days #60 tablet Continue Vitamin B Complex 1 cap PO DAILY Albuterol Sulfate [Albuterol Sulfate Hfa] 1 - 2 puff INHALATION RT-Q4H PRN PRN Reason: Shortness Of Breath Vitamin K-2(Unknown Dose) 1 tab PO DAILY Vitamin C(Unknown Dose) 1 tab PO DAILY Vitamin D(Unknown Dose) 1 tab PO DAILY Discharge Medication List Albuterol Sulfate [Albuterol Sulfate Hfa] 1 - 2 puff INHALATION RT-Q4H PRN 08/31/22 [History] Vitamin B Complex 1 cap PO DAILY 08/31/22 [History] Vitamin C(Unknown Dose) 1 tab PO DAILY 08/31/22 [History] Vitamin D(Unknown Dose) 1 tab PO DAILY 08/31/22 [History] Vitamin K-2(Unknown Dose) 1 tab PO DAILY 08/31/22 [History] Amoxic-Pot Clav 875-125Mg [Augmentin 875-125] 1 each PO Q12HR 9 Days #18 tab 09/01/22 [Rx] Atorvastatin [Lipitor] 40 mg PO HS 30 Days #30 tab 09/01/22 [Rx] amLODIPine 10 mg PO DAILY 30 Days #30 tab 09/01/22 [Rx] Apixaban [Eliquis] 5 mg PO BID 30 Days #60 tab 09/03/22 [Rx] Aspirin 81 mg PO DAILY 30 Days #30 tab 09/03/22 [Rx] Metoprolol Tartrate [Lopressor] 75 mg PO BID 30 Days #60 tablet 09/03/22 [Rx] Follow up Appointment(s)/Referral(s): Juan Alberto Moore MD [STAFF PHYSICIAN] - 1 Week (It is also very important, that you follow up and establish care with lithograph press operator due to right atrial enlargement noted on echocardiogram as it is recommended that you have holter monitor placed to rule out underlying arrhythmia. Office will call patient with appointment ) Michel Bowie MD [REFERRING] - 1 Week (Primary care provider we discussed) Patient Instructions/Handouts: Transient Ischemic Attack (DC), Hypertensive Crisis (DC), Mediterranean Diet (DC), Holter Monitor (GEN) Activity/Diet/Wound Care/Special Instructions: Activity: As tolerated. Take breaks as needed. Diet: Heart healthy and carb consistent diet. Avoid salts, or foods with hidden salts such as canned or boxed foods and frozen dinners. Extra salt makes your heart work harder and traps the fluid in your body for longer. Special Instructions: Take all of your medications as directed and remember to keep all of your doctor's appointments and follow-up as needed. Strongly recommended completing entire antibiotic course as prescribed for treatment of your acute sinusitis. Also you are being discharged home on aspirin and Lipitor secondary to diagnosis of TIA. Return to ER immediately or call 911 if symptoms of numbness/tingling or slurred speech returns or if you develop any other symptoms such as chest pain or focal weakness in your extremities. Also recommend obtaining a blood pressure cuff and monitoring your blood pressure twice daily at home and documenting these findings in a daily log/journal to bring with you to her next doctor's appointment. It is also very important, that you follow up with lithograph press operator, your event monitor report is being sent to Dr. Moore. Thank you for allowing us to participate in your care, it was truly a pleasure having you for our patient!!! Jason is in [facility] pharmacy. Patient will receive 30 days free and a coupon for $10 monthly copay that is good for one year Discharge Disposition: HOME SELF-CARE
== END 2022-09-03 10:34 | disposition home or self-care (01) | DRG 69 ==
LOC: EC 09:00 → OBSVTOIN 10:36 → 6NMEDSUR 10:36
PROVIDERS: ADMIT Internal Medicine; ATTEND Internal Medicine
PROC: B246ZZ4 Ultrasonography of Right and Left Heart, Transesophageal (ICD-10-PCS; principal; 2022-08-31)
DX: G45.9 Transient cerebral ischemic attack, unspecified (principal); R47.01 Aphasia; E87.1 Hypo-osmolality and hyponatremia; I48.0 Paroxysmal atrial fibrillation; E66.3 Overweight; R20.0 Anesthesia of skin; E78.5 Hyperlipidemia, unspecified; I16.0 Hypertensive urgency; J32.0 Chronic maxillary sinusitis; J34.2 Deviated nasal septum; J44.9 Chronic obstructive pulmonary disease, unspecified; I10 Essential (primary) hypertension; R00.1 Bradycardia, unspecified; G43.909 Migraine, unspecified, not intractable, without status migrainosus; I34.0 Nonrheumatic mitral (valve) insufficiency; M25.512 Pain in left shoulder; G31.89 Other specified degenerative diseases of nervous system; Z79.01 Long term (current) use of anticoagulants; Z79.82 Long term (current) use of aspirin; Z79.899 Other long term (current) drug therapy; Z68.30 Body mass index [BMI] 30.0-30.9, adult; Z87.19 Personal history of other diseases of the digestive system
CPT/HCPCS: 36415; 70450; 70496; 70498; 70551; 71046; 80053; 80061; 82550; 83036; 84484; 85025; 85610; 85730; 93005; 93270; 93306; 93880; 94760; 96360; 96361; 96372; 99285